=== PATIENT | female | born 1970 | race Two or more races ===

== ENCOUNTER 2017-12-09 22:40 | Inpatient (IN) | payer MEDICAID, OTHER ==
[~2017-12-09] VITALS: Ht 167.6 cm; Wt 75.3 kg
--- NOTE | 2017-12-09 23:15 | NUR ---
STARTED A SALINE LOCK ON THE RIGHT HAND G20, BLOOD DRAWN AND SENT TO LAB.
--- NOTE | 2017-12-09 23:20 | NUR ---
TO BED 16 A 47 YO FEMALE PATIENT BIB [facility] FROM HOME FOR ETOH/AGRESSIVE/BIZARRE BEHAVIOR. BLOOD SUGAR 57 TOOL ROOM SUPERVISOR. VERSED 5MG GIVEN AND GLUCAGON GIVEN BY EMS TOOL ROOM SUPERVISOR. PLACED PATIENT ON TELE MONITOR. VSS. BREATHING EVEN AND UNLABORED. SAFETY MEASURES IN PLACE. WILL CLOSELY MONITOR.
[2017-12-09] MEDS ORDERED: HALOPERIDOL LACTATE INJ 5 MG/ML VIAL ONE (23:28)
[2017-12-09] MEDS: HALOPERIDOL LACTATE INJ 5 MG/ML VIAL IM ONE (23:32)
[2017-12-09 23:44] LABS: APPEARANCE,URINE CLEAR (CLEAR); BILIRUBIN,URINE NEGATIVE (NEGATIVE); BLOOD, URINE NEGATIVE Ery/uL (NEGATIVE); COLOR,URINE YELLOW (YELLOW); KETONES,URINE NEGATIVE (NEGATIVE); LEUKOCYTE ESTERASE ,URINE 1+ (NEGATIVE); NITRITE, URINE NEGATIVE (NEGATIVE); PH,URINE 5.5 (5.0-8.0); PROTEIN,URINE NEGATIVE (NEGATIVE); UGLUCOSE NEGATIVE (NEGATIVE); UROBILINOGEN,URINE 0.2 EU/dL (0.2)
[2017-12-09 23:44] LABS: BASOPHILS % (AUTO) 0.5 % (0.0-2.0); EOSINOPHILS % (AUTO) 2.2 % (0.0-6.0); HEMATOCRIT 39 % (33-45); HEMOGLOBIN 12.6 g/dL (11.5-14.8); LYMPHOCYTES # (AUTO) 2.5 /CMM (0.8-4.8); LYMPHOCYTES % (AUTO) 41.7 % (20.0-44.0); MEAN CORPUSCULAR HGB CONC 32 g/dl (31.0-36.0); MEAN CORPUSCULAR VOLUME 87 fL (82-100); MONOCYTES # (AUTO) 0.5 /CMM (0.1-1.30); NEUTROPHILS # (AUTO) 2.8 /CMM (1.8-8.9); NEUTROPHILS % (AUTO) 46.6 % (43.0-81.0); PLATELET COUNT (AUTO) 260 /CMM (150-450); RDW COEFFICIENT OF VARIATION 21.5 (11.5-15.0); RED BLOOD CELL COUNT(AUTO) 4.49 MIL/uL (4.0-5.2)
[2017-12-09 23:52] LABS: BACTERIA,URINE None seen /HPF (None Seen); RBC,URINE NONE SEEN /HPF (0-2); SQUAMOUS EPITHELIAL CELL,UR Few /HPF (None Seen)
[2017-12-09 23:55] LABS: CALCIUM, SERUM 8.8 mg/dL (8.5-10.1); POTASSIUM 3.5 mmol/L (3.5-5.1)
[2017-12-10 00:02] LABS: ALBUMIN 3.5 g/dL (3.4-5.0); BILIRUBIN,DIRECT 0.1 mg/dL (0.0-0.2); BILIRUBIN,TOTAL 0.3 mg/dL (0.2-1.0); SALICYLATE 4.7 mg/dL (2.8-20.0); TOTAL PROTEIN, SERUM 8.1 g/dL (6.4-8.2)
[2017-12-10] MEDS: HALOPERIDOL LACTATE INJ 5 MG/ML VIAL IM ONE ×2 (00:35→01:52)
[2017-12-10] MEDS ORDERED: Thiamine 100 MG in IV D5W 50 ML IV STA (00:41)
[2017-12-10] MEDS ORDERED: DEXTROSE 50%-WATER 50 ML DISP.SYRIN ONE (00:41)
[2017-12-10] MEDS ORDERED: Folic acid 1 MG in IV D5W 50 ML IV STA (00:41)
[2017-12-10] MEDS ORDERED: Folic acid 1 MG/0.2 ML VIAL ONE (00:52)
[2017-12-10] MEDS ORDERED: Thiamine 100 MG/ML VIAL ONE (00:52)
[2017-12-10] MEDS ORDERED: IV D5/ 0.9% NACL 1,000 ML IV ONE ×2 (01:00→07:00)
[2017-12-10] MEDS ORDERED: DEXTROSE 50%-WATER 50 ML DISP.SYRIN IVP ONE (01:00)
--- NOTE | 2017-12-10 01:52 | NUR ---
PATIENT STARTED SCREAMING AGAIN, RESTLESS, DOES NOT FOLLOW COMMANDS, COMBATIVE. PER DR CAMPOVERDE, OKAY NOW TO GIVEN HALDOL 5MG IM.
--- NOTE | 2017-12-10 03:30 | NUR ---
PATIENT IS SLEEPING COMFORTABLY AT THIS TIME. VSS. NAD NOTED. ONGOING D5NS AT 250CC/HR PER DR CAMPOVERDE ORDERS.
--- NOTE | 2017-12-10 04:21 | NUR ---
REPORT GIVEN TO ILAN SCHMID FOR KIRSTIN.
--- NOTE | 2017-12-10 06:17 | NUR ---
CALLED [facility] AFTER HOURS [phone]
--- NOTE | 2017-12-10 06:41 | NUR ---
SPOKE WITH DR FRYE, AND REPORTED BLOOD SUGAR OF 61MGDL AND I RECEIVED ORDERS TO CONTINUE THE D5NS 250CC/HR.
--- NOTE | 2017-12-10 06:50 | NUR ---
TRANSFERRED PATIENT TO TELE BED VIA ALS PROTOCOL, NO INCIDENT NOTED. VSS. NAD NOTED.
[2017-12-10 08:00] VITALS: BP 120/77
[2017-12-10] MEDS ORDERED: QUET300T2 PO (08:05)
[2017-12-10] MEDS ORDERED: TOPI100T PO (08:05)
[2017-12-10] MEDS ORDERED: BUPR300T52 PO (08:05)
[2017-12-10] MEDS ORDERED: MIRT15TA GT (08:05)
[2017-12-10] MEDS ORDERED: TOPI200T PO (08:05)
--- NOTE | 2017-12-10 09:18 | NUR ---
MARINE SERVICE MANAGER NOTES A/O X3, APPEARS CALM. TOLERATING ROOM AIR, NO SOB. AMBULATORY. SINUS RHYTHM HS 83 IN THE MONITOR. DENIES PAIN, SAFETY MEASURES IN PLACE. PLACE ON REGULAR DIET ORDERED. DR. SLATER TO REVIEW HOME MEDS. WILL CONT O MONITOR.
[2017-12-10] MEDS ORDERED: Potassium Chloride 10 MEQ in IV D5/ 0.9% NACL 1,000 ML IV PRN (09:30)
[2017-12-10] MEDS ORDERED: MIRTAZAPINE 15 MG TABLET GT SCH ×2 (10:00→22:00)
[2017-12-10] MEDS ORDERED: TOPIRAMATE 100 MG TABLET PO SCH ×2 (10:30→22:00)
--- NOTE | 2017-12-10 12:31 | NUR ---
Social service consult requested by BINU Cronin regarding pt. being homeless. Pt. is a 47 year old female who was admitted to [facility] for AMS due to alcohol intoxication. SW met with pt. bedside. Pt's male multilith operator was sitting bedside. Pt. is alert and oriented x4. Before SW could ask her any questions, pt. stated " I do not need any resources, I am linked with [facility] and I will going there after being discharged". Pt. will be going to [facility] facility located at [address] [place] [address]. [place] [id number]. . SW asked pt. if she would like any bus tokens to get there. Pt. stated yes. SW contacted Nursing car wash supervisor Alma and requested two bus tokens to give to pt's BINU Cronin. Pt. to transport herself to [facility]. No other social service needs are requested at this time. SW is available, if needed.
--- NOTE | 2017-12-10 14:04 | NUR ---
MECHANICAL SPREADER OPERATOR DISCHARGED PATIENT HAS BEEN CLEARED FOR DISCHARGE BY DR. SLATER. CURRENT BLOOD SUGAR 81MG/DL PRIOR DC. VS REMAINS STABLE, A/O X4. DENIES PAIN, SKIN INTACT. DISCHARGE INSTRUCTION GIVEN TO PATIENT, VERBALIZED UNDERSTANDING. IVC IN RIGHT WRIST REMOVED, GAUZE APPLIED. NO BLEEDING NOTED. PATIENT LEFT HOSP IN STABLE CONDITION ACCOMPANIED BY LEFTY-BOYFRIEND.
[2017-12-10] MEDS ORDERED: QUETIAPINE FUMARATE 100 MG TABLET PO SCH (22:00)
[2017-12-11] MEDS ORDERED: BUPROPION XL 150 MG TAB.ER.24 PO SCH (09:00)
== END 2017-12-10 13:10 | disposition home or self-care (01) | DRG 775 ==
LOC: EDBD 22:43 → ER 22:43 → TELE 12-10 06:33 → MED 12-10 08:59
PROVIDERS: ADMIT Internal Medicine; ATTEND Internal Medicine
DX: F10.129 Alcohol abuse with intoxication, unspecified (principal); F31.9 Bipolar disorder, unspecified; F13.10 Sedative, hypnotic or anxiolytic abuse, uncomplicated; E16.2 Hypoglycemia, unspecified; F17.210 Nicotine dependence, cigarettes, uncomplicated; G40.909 Epilepsy, unspecified, not intractable, without status epilepticus; Y90.8 Blood alcohol level of 240 mg/100 ml or more; F12.10 Cannabis abuse, uncomplicated; F15.10 Other stimulant abuse, uncomplicated
CPT/HCPCS: 36415; 71045-TC; 80048-TC; 80076-TC; 80305; 81000-TC; 82962-TC; 84703-TC; 85025-TC; 87081-TC; 87086-TC; A4606; G0480; J1630; J3411; J3480; J3490; J7042; J7060; Z7610